=== PATIENT | female | born 1960 | race Caucasian/White ===

== ENCOUNTER 2019-01-31 08:05 | Day surgery (SDC) | payer BC ==
[~2019-01-31 08:05] MED LIST: LACTATED RINGERS 1,000 ML IV SCH; LIDOCAINE 1% 20 ML VIAL (10MG/ML) FOR IV START INTRADERMA PRN
[2019-01-31 08:20] VITALS: RESP 16; TEMP 98.4
[2019-01-31] MEDS ORDERED: PROPOFOL 10 MG/ML 20 ML VIAL IV ONE (08:57)
--- NOTE | 2019-01-31 09:15 | P.GSHP ---
History of Present Illness H&P Date: 01/31/19 Chief Complaint: Screening colonoscopy This a 58-year-old female who presents today for screening colonoscopy. Patient denies any significant GI complaints. Past Medical History Past Medical History: No Reported History History of Any Multi-Drug Resistant Organisms: None Reported Past Surgical History: Orthopedic Surgery Additional Past Surgical History / Comment(s): EARLOBE REPAIR. COLONSCOPY. D & C. LEFT ROTATOR CUFF. Past Anesthesia/Blood Transfusion Reactions: No Reported Reaction Past Psychological History: No Psychological Hx Reported Smoking Status: Current every day smoker Past Alcohol Use History: None Reported Additional Past Alcohol Use History / Comment(s): HAS SMOKED FOR 40 YR, 1PPD. Past Drug Use History: None Reported Medications and Allergies Home Medications Medication Instructions Recorded Confirmed Type Multivitamins, Thera [Multivitamin 1 tab PO DAILY 01/27/19 01/27/19 History (formulary)] Allergies Allergy/AdvReac Type Severity Reaction Status Date / Time aspirin AdvReac UPSET Verified 01/27/19 17:28 STOMACH Surgical - Exam Vital Signs Temp Pulse Resp BP Pulse Ox 98.4 F 78 16 134/74 100 01/31/19 08:19 01/31/19 08:19 01/31/19 08:19 01/31/19 08:19 01/31/19 08:19 - General well developed, well nourished, no distress - Eyes PERRL - ENT normal pinna - Neck no masses - Respiratory normal expansion - Cardiovascular Rhythm: regular - Abdomen Abdomen: soft, non tender Assessment and Plan Assessment: We'll perform screening colonoscopy.
--- NOTE | 2019-01-31 09:28 | P.OP ---
Date of Procedure: 01/31/19 Preoperative Diagnosis: Screening colonoscopy Postoperative Diagnosis: Tortuous colon Procedure(s) Performed: Colonoscopy Anesthesia: MAC Surgeon: Gorge Thompson Pathology: none sent Condition: stable Disposition: PACU Description of Procedure: The patient's placed on the endoscopy table lateral position. She received IV sedation. Digital rectal exam performed which revealed no abnormalities. Flexible colonoscope was then placed patient anus passed throughout the colon. The colon was quite tortuous. The ileocecal valve could not be visualized. The scope was withdrawn. The ascending colon, transverse colon and descending colon appeared normal however the colon was very twisted. The scope was then brought back into the sigmoid: This was normal. Scope was withdrawn into the rectum this appeared scope was withdrawn for patient.
[2019-01-31 09:49] VITALS: BP 125/73; PULSE 75
--- NOTE | 2019-02-02 09:04 | CDI ---
Outpatient Documentation Clarification Form Date: 02/02/19 CDS/Children Teacher Name: Imelda Jacobo Phone: If any questions, call Sunita Pineda Sanitation Inspector at [phone] Patient Name: Marlena Kauffman Admit Date: 01/31/19 Discharge Date: 01/31/19 ATTENTION: The [facility] Coding Staff appreciate your assistance in clarifying documentation. Please respond to the clarification below the line at the bottom and electronically sign. The [facility] Coding staff will review the response and follow-up if needed. Please note: Queries are made part of the Legal Health Record. If you have any questions, please contact the Sanitation Inspector. Dear Dr. Thompson, Please provide clarification as to how far you were able to advance the colonoscope. There is no mention of the cecum in your procedure note. A complete colonoscopy includes visualization of the cecum. If the cecum was not visualized, the colonoscopy is not considered a complete exam. Please clarify. Thank you for your kind consideration. The ascending colon, transverse colon and descending colon appeared normal however the colon was very twisted. The scope was then brought back into the sigmoid: This was normal. Scope was withdrawn into the rectum this appeared scope was withdrawn for patient. The above is from the operative note. The colonoscope was advanced into the proximal ascending colon. The ileocecal valve was not visualized. MTDD
== END 2019-01-31 09:58 | disposition home or self-care (01) ==
LOC: ORWHC2ENDO 08:05
PROVIDERS: ATTEND Surgery
DX: Z12.11 Encounter for screening for malignant neoplasm of colon (principal); Q43.8 Other specified congenital malformations of intestine; F17.210 Nicotine dependence, cigarettes, uncomplicated; Z88.6 Allergy status to analgesic agent
CPT/HCPCS: J2704; G0121

== ENCOUNTER → 2019-02-18 | Outpatient (CLI) | payer BC ==
--- NOTE | 2019-02-20 09:39 | MM ---
Reason for exam: screening (asymptomatic). Last mammogram was performed 8 years and 10 months ago. History: Patient is postmenopausal. Family history of breast cancer in sister at age 47 and premenopausal breast cancer in aunt. Physical Findings: A clinical breast exam by your physician is recommended on an annual basis and results should be correlated with mammographic findings. MG Screening Mammo w CAD Bilateral CC and MLO view(s) were taken. Prior study comparison: April 30, 2010, bilateral digital screening mammogram. January 24, 2004, bilateral screening mammogram. The breast tissue is heterogeneously dense. This may lower the sensitivity of mammography. There is no discrete abnormality. No significant changes when compared with prior studies. ASSESSMENT: Negative, BI-RAD 1 RECOMMENDATION: Routine screening mammogram of both breasts in 1 year.
== END ==
LOC: RADMAMWWP 09:27
PROVIDERS: ATTEND Obstetrics & Gynecology Obstetrics
DX: Z08 Encounter for follow-up examination after completed treatment for malignant neoplasm (principal); Z80.3 Family history of malignant neoplasm of breast
CPT/HCPCS: 77067

== ENCOUNTER → 2021-01-22 | Outpatient (CLI) | payer BC ==
--- NOTE | 2021-01-22 14:27 | MM ---
Reason for exam: additional evaluation requested from abnormal screening. Last mammogram was performed less than 1 month ago. History: Patient is postmenopausal. Family history of breast cancer in mother at age 50, breast cancer in sister at age 47, and premenopausal breast cancer in maternal aunt at age 60. Physical Findings: Nurse did not find any significant physical abnormalities on exam. MG 3D Work Up W/Cad LT Spot compression CC, spot compression MLO, and LM view(s) were taken of the left breast. Prior study comparison: January 07, 2021, bilateral MG screening mammo w CAD. February 18, 2019, bilateral MG screening mammo w CAD. The breast tissue is heterogeneously dense. This may lower the sensitivity of mammography. There is no discrete abnormality including area of concern inferior MLO view. These results were verbally communicated with the patient and result sheet given to the patient on 01/22/21. ASSESSMENT: Probably benign, BI-RAD 3 RECOMMENDATION: Follow-up diagnostic mammogram of the left breast in 6 months.
== END | disposition home or self-care (01) ==
LOC: RADMAMWWP 13:28
PROVIDERS: ATTEND Obstetrics & Gynecology Obstetrics
DX: R92.8 Other abnormal and inconclusive findings on diagnostic imaging of breast (principal); Z80.3 Family history of malignant neoplasm of breast
CPT/HCPCS: 77061; 77065